=== PATIENT | male | born 1955 | race Caucasian/White ===

== ENCOUNTER 2019-10-14 10:45 | Emergency (ER) | payer OTHER ==
--- NOTE | 2019-10-14 11:09 | ER Document Report ---
ED Medical Screen (RME) - General Chief Complaint: Knee Pain Stated Complaint: FALL/KNEE PAIN Time Seen by Provider: 10/14/19 10:57 Primary Care Provider: NEO GONZALEZ [Primary Care Provider] - Follow up as needed Mode of Arrival: Wheelchair Information source: Patient Notes: 63-year-old male with history of bladder and skin cancer presents emergency department with left leg swelling erythema warmth. Reports that on Friday he fell onto his left knee. On Friday his home health nurse came to see him and noticed it was starting to swell erythema to his leg. He was evaluated at [facility] and treated with Solu-Medrol doxy and prednisone. He was also given a prescription for a Doppler. [facility] He has not had the Doppler yet. He presents today with left knee pain swelling to the left leg with erythema. Patient bilateral lower legs are wrapped. He reports he has skin cancer removed. Denies fever vomiting diarrhea. I have greeted and performed a rapid initial assessment of this patient. A comprehensive ED assessment and evaluation of the patient, analysis of test results and completion of the medical decision making process will be conducted by additional ED providers. Physical Exam - Vital signs Vitals: Temp Pulse Resp BP Pulse Ox 97.5 F 86 22 H 149/70 H 91 L 10/14/19 10:52 10/14/19 10:52 10/14/19 10:52 10/14/19 10:52 10/14/19 10:52 Course - Vital Signs Vital signs: Temp Pulse Resp BP Pulse Ox 97.5 F 86 22 H 149/70 H 91 L 10/14/19 10:52 10/14/19 10:52 10/14/19 10:52 10/14/19 10:52 10/14/19 10:52 Doctor's Discharge - Discharge Referrals: NEO GONZALEZ [Primary Care Provider] - Follow up as needed
--- NOTE | 2019-10-14 11:44 | RADIOLOGY REPORT (SQ) ---
EXAM DESCRIPTION: KNEE LEFT 4 VIEW COMPLETED DATE/TIME: 10/14/2019 11:33 am REASON FOR STUDY: fell onto knee COMPARISON: None. NUMBER OF VIEWS: Four views. TECHNIQUE: AP, lateral, and both oblique radiographic images acquired of the left knee. LIMITATIONS: None. FINDINGS: MINERALIZATION: Normal. BONES: No acute fracture or dislocation. No worrisome bone lesions. JOINT: No effusion. SOFT TISSUES: No soft tissue swelling. No radio-opaque foreign body. OTHER: Tricompartment osteoarthritis. IMPRESSION: NO RADIOGRAPHIC EVIDENCE OF ACUTE INJURY. TECHNICAL DOCUMENTATION: JOB ID: [id number] [employer]22[employer] All Rights Reserved Reading location - IP/workstation name: [email or web address]
[2019-10-14 12:33] LABS: HEMATOCRIT 33.7 % (37.9-51.0); HEMOGLOBIN 11.5 g/dL (13.5-17.0); MEAN CORPUSCULAR HEMOGLOBIN 34.6 pg (27.0-33.4); MEAN CORPUSCULAR HGB CONC 34.1 g/dL (32.0-36.0); MEAN CORPUSCULAR VOLUME 102 fl (80-97); PLATELET COUNT 156 10^3/uL (150-450); RED BLOOD COUNT 3.33 10^6/uL (4.35-5.55); RED CELL DISTRIBUTION WIDTH 16.3 % (11.5-14.0); WHITE BLOOD COUNT 11.2 10^3/uL (4.0-10.5)
--- NOTE | 2019-10-14 12:37 | RADIOLOGY REPORT (SQ) ---
EXAM DESCRIPTION: VENOUS UNILATERAL LOWER COMPLETED DATE/TIME: 10/14/2019 12:27 pm REASON FOR STUDY: swelling erythema left leg COMPARISON: None. TECHNIQUE: Dynamic and static monroy scale and color images acquired of the left leg venous system. Se lected spectral images acquired with additional compression and augmentation maneuvers. The contralat eral common femoral vein and saphenofemoral junction were also imaged. Images stored on PACS. LIMITATIONS: None. FINDINGS: COMMON FEMORAL: Normal phasicity, compression and augmentation. No visualized echogenic ma terial on monroy scale. No defects on color images. FEMORAL: Normal compression and augmentation. No visualized echogenic material on monroy scale. No defe cts on color images. Distal femoral poorly seen. POPLITEAL: Normal compression, augmentation. No visualized echogenic material on monroy scale. No defec ts on color images. CALF VESSELS: Normal compression, augmentation. No visualized echogenic material on monroy scale. No de fects on color images. GSV and SSV: Normal compression, augmentation. No visualized echogenic material on monroy scale. No def ects on color images. ANY DEEP VENOUS INSUFFICIENCY: Not evaluated. ANY EVIDENCE OF POPLITEAL CYST: No. OTHER: Inguinal adenopathy. CONTRALATERAL COMMON FEMORAL VEIN AND SAPHENOFEMORAL JUNCTION: Normal phasicity, compression and augmentation. No visualized echogenic material on monroy scale. No de fects on color images. IMPRESSION: No evidence of DVT or SVT in the left leg. Inguinal adenopathy. TECHNICAL DOCUMENTATION: JOB ID: [id number] [employer]- All Rights Reserved Reading location - IP/workstation name: [email or web address]
[2019-10-14 12:56] LABS: ALBUMIN 3.2 g/dL (3.5-5.0); ALKALINE PHOSPHATASE 138 U/L (38-126); ANION GAP 11 (5-19); ASPARTATE AMINO TRANSFERASE 121 U/L (17-59); BILIRUBIN,DIRECT 0.5 mg/dL (0.0-0.4); BILIRUBIN,TOTAL 0.6 mg/dL (0.2-1.3); BLOOD UREA NITROGEN 26 mg/dL (7-20); CALCIUM 8.2 mg/dL (8.4-10.2); CARBON DIOXIDE 26 mmol/L (22-30); CHLORIDE 99 mmol/L (98-107); GLUCOSE 292 mg/dL (75-110); POTASSIUM 3.8 mmol/L (3.6-5.0); TOTAL PROTEIN 6.9 g/dL (6.3-8.2)
[2019-10-14 13:03] LABS: ABSOLUTE LYMPHOCYTES# (MANUAL) 0.6 10^3/uL (0.5-4.7); ABSOLUTE MONOCYTES # (MANUAL) 0.6 10^3/uL (0.1-1.4); BASOPHILS % (MANUAL) 0 % (0-2); EOSINOPHILS % (MANUAL) 0 % (0-6); LYMPHOCYTES % (MANUAL) 3 % (13-45); MONOCYTES % (MANUAL) 5 % (3-13); SEGMENTED NEUTROPHILS % (MAN) 90 % (42-78); TOTAL CELLS COUNTED 100
[2019-10-14 13:04] LABS: ANISOCYTOSIS 1+; POIKILOCYTOSIS SLIGHT; POLYCHROMASIA SLIGHT; TEAR DROP CELLS SLIGHT
[2019-10-14 13:05] LABS: PLATELET COMMENT ADEQUATE
--- NOTE | 2019-10-14 14:02 | ER Document Report ---
ED General - General Chief Complaint: Swelling of Lower Extremity Stated Complaint: FALL/KNEE PAIN Time Seen by Provider: 10/14/19 10:57 Primary Care Provider: NEO GONZALEZ [NO LOCAL MD] - Follow up as needed Mode of Arrival: Wheelchair TRAVEL OUTSIDE OF THE [place] IN LAST 30 DAYS: No - HPI Notes: Patient is a 63-year-old male who presents to the emergency department for evaluation of left lower extremity swelling. On Friday he fell and hit his knee. He had pain in it, and then he developed redness and swelling. He was seen at an urgent care. They treated him for cellulitis, and ordered a [facility] He presents here for further evaluation. He states that that area feels warm, but he is not had any fevers. No nausea or vomiting. Patient also states he has had some shortness of breath. Is been going on for about the last year. He discussed that with him at the urgent care. He was placed on steroids. He denies any acute shortness of breath at this time. He does not have a formal diagnosis of COPD, but is awaiting pulmonology referral. Patient has a history of a chronic wound, being attended to by wound care on the left lower extremity. He is told that it is improved. - Related Data Home Medications: List reviewed, please see notes Past Medical History - General Information source: Patient - Social History Smoking Status: Former Smoker Frequency of alcohol use: Occasional Drug Abuse: None Family History: Reviewed & Not Pertinent Patient has suicidal ideation: No Patient has homicidal ideation: No - Past Medical History Cardiac Medical History: Reports: Hx Atrial Fibrillation, Hx Hypertension Pulmonary Medical History: Reports: Hx COPD GI Medical History: Reports: Hx Gastroesophageal Reflux Disease Past Surgical History: Reports: Hx Abdominal Surgery, Hx Appendectomy, Hx Genitourinary Surgery - bladder removed, Hx Oral Surgery Review of Systems - Review of Systems Constitutional: No symptoms reported EENT: No symptoms reported Cardiovascular: No symptoms reported Respiratory: See HPI Gastrointestinal: No symptoms reported Genitourinary: No symptoms reported Musculoskeletal: See HPI Skin: See HPI Neurological/Psychological: No symptoms reported Physical Exam - Vital signs Vitals: Temp Pulse Resp BP Pulse Ox 97.5 F 86 22 H 149/70 H 91 L 10/14/19 10:52 10/14/19 10:52 10/14/19 10:52 10/14/19 10:52 10/14/19 10:52 - Notes Notes: This is an obese 63-year-old male who appears his stated age in no acute distress. He is resting comfortably, no signs of respiratory distress or difficulty. Vital signs reviewed, please refer to chart. Head is normocephalic, atraumatic. Pupils equal round, reactive to light. Neck is supple without meningismus. Heart is regular rate and rhythm. Lungs reveal mildly diminished breath sounds but no wheezes, rales, rhonchi.. Abdomen is soft, nontender, normoactive bowel sounds throughout. Extremities without cyanosis, clubbing. Examination of the left lower extremity yields diffuse erythema with petechiae noted to the entire lower leg, tracking caudally on the medial and lateral aspects of the leg. There actually seems to be sparing over the patella. He has minimal tenderness to palpation over the patella. Full range of motion of the knee although elicits some pain. Diminished pulses distally but they are symmetrical. He has a chronic appearing wound on the distal aspect of the posterior calf, with granular relation tissue forming. There is calor noted to the entire leg. Course - Re-evaluation Re-evalutation: 10/14/19 14:02 Patient presents emergency department for evaluation. He had laboratory investigations, imaging as ordered through triage. His Doppler was found to be negative. X-ray failed to reveal any signs of fracture or significant effusion. He does have a mild leukocytosis, but he is also on steroids. I believe these were intended for his acute COPD exacerbation, or at least his presumed COPD. He was started on doxycycline for presumed cellulitis. Although I do not strongly suspect a cellulitis in this patient, he has multiple medical issues, and I would rather treat him for cellulitis given this information. His Doppler was found to be negative, but explained to the patient that you would need a repeat Doppler in 1 week if his symptoms persisted. He voiced understanding. Otherwise, he is strongly encouraged [facility] his [facility] referral and COPD evaluation. He voiced understanding. His wound in his leg was redressed, he is to follow-up with primary care and return to the ED with worsening. - Vital Signs Vital signs: Temp Pulse Resp BP Pulse Ox 97.9 F 78 17 119/84 94 10/14/19 15:14 10/14/19 15:14 10/14/19 15:14 10/14/19 15:14 10/14/19 15:14 - Laboratory Result Diagrams: 10/14/19 12:20 10/14/19 12:20 Laboratory results interpreted by me: 10/14/19 10/14/19 12:20 12:20 WBC 11.2 H RBC 3.33 L Hgb 11.5 L Hct 33.7 L MCV 102 H MCH 34.6 H RDW 16.3 H Seg Neuts % (Manual) 90 H Lymphocytes % (Manual) 3 L Abs Neuts (Manual) 10.1 H Sodium 136.3 L BUN 26 H Creatinine 1.39 H Est GFR (MDRD) Non-Af 52 L Glucose 292 H Calcium 8.2 L Direct Bilirubin 0.5 H AST 121 H Alkaline Phosphatase 138 H Albumin 3.2 L - Diagnostic Test Radiology reviewed: Reports reviewed Radiology results interpreted by me: 10/14/19 14:03 Knee X-Ray 10/14/19 11:06 IMPRESSION: NO RADIOGRAPHIC EVIDENCE OF ACUTE INJURY. Venous Doppler Study 10/14/19 11:06 IMPRESSION: No evidence of DVT or SVT in the left leg. Inguinal adenopathy. Discharge - Discharge Clinical Impression: Leg edema, left, Contusion of left knee Condition: Stable Disposition: HOME, SELF-CARE Instructions: Contusion ([facility]) Additional Instructions: Continue your medications as prescribed. If your swelling continues in 1 week, you will need a repeat Doppler. Please be sure to make your appointment with pulmonology regarding evaluation of your chronic difficulty breathing. Return to the emergency department if you develop worsening or new concerning symptoms of any sort. Referrals: LOCALMD,NO [NO LOCAL MD] - Follow up as needed
[2019-10-14 15:16] VITALS: BP 119/84
== END 2019-10-14 15:16 | disposition home or self-care (01) ==
LOC: ER 10:45
DX: S80.02XA Contusion of left knee, initial encounter (principal); W19.XXXA Unspecified fall, initial encounter; R60.0 Localized edema; R06.02 Shortness of breath; D72.829 Elevated white blood cell count, unspecified; R59.0 Localized enlarged lymph nodes; L53.9 Erythematous condition, unspecified; I10 Essential (primary) hypertension; Z87.891 Personal history of nicotine dependence
CPT/HCPCS: 36415; 80053; 85025; 87040; 93971; 99284